=== PATIENT | female | born 1990 | race Caucasian/White ===

== ENCOUNTER 2018-11-21 20:19 | Emergency (ER) | payer SELFPAY ==
[2018-11-21 20:26] VITALS: BP 110/67; PULSE 97; RESP 16; TEMP 36.6; O2SAT 100
[2018-11-21] MEDS: Acetaminophen 500 MG TAB 1000 MG PO (20:44)
--- NOTE | 2018-11-21 20:59 | W.ED.GENAD ---
Discharge Plan Disposition Patient Disposition: HOME Condition: Improving Discharge Details Chief Complaint: Headache Clinical Impression: Acute anterior epistaxis Primary Care Provider: None,None ED Provider: Israel Wood Discharge Instructions Instructions: Nosebleed (ED) Additional Instructions: Please refrain from any stimulation or trauma to your nose as this may cause nosebleeding to recur. You may use small amounts of bacitracin on a Q-tip just inside your nose to keep them moist. For any further headache she may continue to use Tylenol but I would suggest refraining from NSAIDs including ibuprofen or aspirin. If symptoms become persistent please follow-up with primary care provider or ENT for reassessment. Feel free to return the emergency department for any new or worsening symptoms. Referrals: Primary Care Provider [Outside] (as needed) Discharge Data Discharge Date/Time-TO BE ENTERED AT DEPARTURE: 11/21/18 21:38 Medical Decision Making Patient presenting the emergency department for chief complaint of epistaxis. Patient reports 3 times this week she has had epistaxis followed by a mild headache afterwards. Patient denies any focal neurological deficits does state some history of headache and that this is not the most severe headache she has ever had but was concerned about them being related. Patient denies any specific injury or trauma that started the event. Physical exam does show an anterior source of epistaxis with dried blood present and no current bleeding. Given that patient has had 3 occurrences this week with no known cause I do feel that CBC is warranted at feel that this is more likely due to minor acute trauma. Plan to observe patient and give acetaminophen for headache. Neurological exam is unremarkable. No acute signs of anemia, within normal limits platelets, and otherwise nondiagnostic. Patient reassessed and states improvement of headache and no further epistaxis. Patient was given a nasal clip and informed on appropriate care and return precautions were thoroughly discussed. Patient to follow-up with primary care provider for reassessment or if this continues to become a recurrent issue. After discussion of diagnosis and plan of care patient has no further needs, questions, or concerns and states clear understanding to return to the emergency department for any worsening symptoms. HPI General Mode of arrival: ambulatory. Date/Time Provider Initiated Documentation: 11/21/18 20:20. Limitations to Documentation: no limitations. Information obtained by: patient and RN notes reviewed. History of Present Illness 27 year old F presents to the emergency department with the chief complaint of Epistaxis, headache, described as mild and similar to prior episodes, with intensity rated at 5. and is localized to the head. Patient started experiencing this week(s) (1) and it has been intermittent. No relieving factors improve symptom(s), Patient did receive the following treatments prior to arrival, none Related Data Allergies Allergy/AdvReac Type Severity Reaction Status Date / Time nut - unspecified Allergy Mild Skin Rash Unverified 11/21/18 20:30 General Stated Complaint: Headache JULISSA: 4 Review of Systems Constitutional Denies chills, Denies fever(s) and Reports headache(s) Eyes Denies change in vision and Denies photophobia ENT Reports as per HPI, Denies dizziness, Reports headache(s), Reports epistaxis, Denies nasal obstruction, Denies nasal trauma and Denies post nasal drip Cardiovascular Denies chest pain and Denies syncope Gastrointestinal Denies nausea and Denies vomiting Neurologic Reports as per HPI, Denies dizziness, Denies syncope, Reports headache(s) and Denies sensory deficit [facility] Medical History Polycystic ovarian disease (Acute) Social History Smoking/Tobacco Use Status: Never Drug use: Never Do you feel safe at home: Yes Do you feel safe in your relationship?: Yes Exam Const General: cooperative, healthy appearing, no acute distress and well groomed Orientation: alert, awake and oriented x3 HENMT Head: normal to inspection and atraumatic Ears: hearing grossly normal bilaterally and TM's normal bilaterally General nose exam: external nose normal, no nasal discharge and epistaxis on the right anterior source and dried blood present Mouth: oral mucosae normal and moist mucous membranes Throat: posterior oropharynx normal, tonsils normal and uvula midline Eyes Visual Gay: normal visual gay by confrontation Alignment and Position: alignment normal Periorbital: periorbital findings normal Eyelids: eyelids normal Pupils: PERRL EOM: EOM intact bilaterally and No nystagmus Neck Neck: normal visual inspection, full ROM, no lymphadenopathy and no meningeal signs Resp Effort & Inspection: normal respiratory effort and able to speak in complete sentences Auscultation: clear to auscultation bilaterally Cardio Rate: regular rate Rhythm: regular rhythm Heart Sounds: S1 normal and S2 normal Neuro General: alert, awake, oriented x3, gait normal, tone normal, moves all extremities, normal light touch, pain and propioception, no meningeal signs, CN's II-XI intact bilaterally and not confused Cranial Nerves: no nystagmus Cognition: normal cognition Speech: speech normal Motor: muscle tone normal throughout and strength 5/5 throughout Course Vital Signs Temperature 36.6 C 11/21/18 20:26 Pulse 97 H 11/21/18 20:26 Respiratory Rate 16 11/21/18 20:26 Blood Pressure 110/67 11/21/18 20:26 Pulse Oximetry 100 11/21/18 20:26 Temperature 36.6 C 11/21/18 20:26 Temperature Source Skin 11/21/18 20:26 Pulse 97 H 11/21/18 20:26 Respiratory Rate 16 11/21/18 20:26 Respiratory Effort Non-Labored 11/21/18 20:28 Blood Pressure 110/67 11/21/18 20:26 Pulse Oximetry 100 11/21/18 20:26 Oxygen Delivery Method Room Air 11/21/18 20:26 Oxygen Flow Rate 0 11/21/18 20:26 Pain Level 5 11/21/18 20:44
--- NOTE | 2018-11-21 21:04 | ED.GENADUL_ITS ---
Discharge Plan Disposition Patient Disposition: HOME Condition: Improving Discharge Details Chief Complaint: Headache Clinical Impression: Acute anterior epistaxis Primary Care Provider: None,None ED Provider: Israel Wood Discharge Instructions Instructions: Nosebleed (ED) Additional Instructions: Please refrain from any stimulation or trauma to your nose as this may cause nosebleeding to recur. You may use small amounts of bacitracin on a Q-tip just inside your nose to keep them moist. For any further headache she may continue to use Tylenol but I would suggest refraining from NSAIDs including ibuprofen or aspirin. If symptoms become persistent please follow-up with primary care provider or ENT for reassessment. Feel free to return the emergency department for any new or worsening symptoms. Referrals: Primary Care Provider [Outside] (as needed) Discharge Data Discharge Date/Time-TO BE ENTERED AT DEPARTURE: 11/21/18 21:38 Medical Decision Making Patient presenting the emergency department for chief complaint of epistaxis. Patient reports 3 times this week she has had epistaxis followed by a mild headache afterwards. Patient denies any focal neurological deficits does state some history of headache and that this is not the most severe headache she has ever had but was concerned about them being related. Patient denies any specific injury or trauma that started the event. Physical exam does show an anterior source of epistaxis with dried blood present and no current bleeding. Given that patient has had 3 occurrences this week with no known cause I do feel that CBC is warranted at feel that this is more likely due to minor acute trauma. Plan to observe patient and give acetaminophen for headache. Neurological exam is unremarkable. No acute signs of anemia, within normal limits platelets, and otherwise nondiagnostic. Patient reassessed and states improvement of headache and no further epistaxis. Patient was given a nasal clip and informed on appropriate care and return precautions were thoroughly discussed. Patient to follow-up with primary care provider for reassessment or if this continues to become a recurrent issue. After discussion of diagnosis and plan of care patient has no further needs, questions, or concerns and states clear understanding to return to the emergency department for any worsening symptoms. HPI General Mode of arrival: ambulatory . Date/Time Provider Initiated Documentation: 11/21/18 20:20 . Limitations to Documentation: no limitations . Information obtained by: patient and RN notes reviewed . History of Present Illness 27 year old F presents to the emergency department with the chief complaint of Epistaxis, headache, described as mild and similar to prior episodes, with intensity rated at 5. and is localized to the head. Patient started experiencing this week(s) (1) and it has been intermittent. No relieving factors improve symptom(s), Patient did receive the following treatments prior to arrival, none Related Data Allergies Allergy/AdvReac Type Severity Reaction Status Date / Time nut - unspecified Allergy Mild Skin Rash Unverified 11/21/18 20:30 General Stated Complaint: Headache JULISSA: 4 Review of Systems Constitutional Denies chills, Denies fever(s) and Reports headache(s) Eyes Denies change in vision and Denies photophobia ENT Reports as per HPI, Denies dizziness, Reports headache(s), Reports epistaxis, Denies nasal obstruction, Denies nasal trauma and Denies post nasal drip Cardiovascular Denies chest pain and Denies syncope Gastrointestinal Denies nausea and Denies vomiting Neurologic Reports as per HPI, Denies dizziness, Denies syncope, Reports headache(s) and Denies sensory deficit [facility] Medical History Polycystic ovarian disease (Acute) Social History Smoking/Tobacco Use Status: Never Drug use: Never Do you feel safe at home: Yes Do you feel safe in your relationship?: Yes Exam Const General: cooperative, healthy appearing, no acute distress and well groomed Orientation: alert, awake and oriented x3 HENMT Head: normal to inspection and atraumatic Ears: hearing grossly normal bilaterally and TM's normal bilaterally General nose exam: external nose normal, no nasal discharge and epistaxis on the right anterior source and dried blood present Mouth: oral mucosae normal and moist mucous membranes Throat: posterior oropharynx normal, tonsils normal and uvula midline Eyes Visual Gay: normal visual gay by confrontation Alignment and Position: alignment normal Periorbital: periorbital findings normal Eyelids: eyelids normal Pupils: PERRL EOM: EOM intact bilaterally and No nystagmus Neck Neck: normal visual inspection, full ROM, no lymphadenopathy and no meningeal signs Resp Effort & Inspection: normal respiratory effort and able to speak in complete sentences Auscultation: clear to auscultation bilaterally Cardio Rate: regular rate Rhythm: regular rhythm Heart Sounds: S1 normal and S2 normal Neuro General: alert, awake, oriented x3, gait normal, tone normal, moves all extremities, normal light touch, pain and propioception, no meningeal signs, CN's II-XI intact bilaterally and not confused Cranial Nerves: no nystagmus Cognition: normal cognition Speech: speech normal Motor: muscle tone normal throughout and strength 5/5 throughout Course Vital Signs Temperature 36.6 C 11/21/18 20:26 Pulse 97 H 11/21/18 20:26 Respiratory Rate 16 11/21/18 20:26 Blood Pressure 110/67 11/21/18 20:26 Pulse Oximetry 100 11/21/18 20:26 Temperature 36.6 C 11/21/18 20:26 Temperature Source Skin 11/21/18 20:26 Pulse 97 H 11/21/18 20:26 Respiratory Rate 16 11/21/18 20:26 Respiratory Effort Non-Labored 11/21/18 20:28 Blood Pressure 110/67 11/21/18 20:26 Pulse Oximetry 100 11/21/18 20:26 Oxygen Delivery Method Room Air 11/21/18 20:26 Oxygen Flow Rate 0 11/21/18 20:26 Pain Level 5 11/21/18 20:44
[2018-11-21 21:06] LABS: Abs Immature Grans 0.06 k/cumm (0.0-0.09); Absolute Basophil Count 0.03 k/cumm (0.0-0.2); Absolute Lymphocyte Count 2.27 k/cumm (1.2-3.4); Absolute Monocyte Count 1.03 k/cumm (0.11-0.7); Basophils % 0.2; Eosinophils % 0.8; HCT 43.1 % (36.0-46.0); Immature Grans % 0.5; Lymphocytes % 18.1; Mean Corp. HGB Concentration 32.5 g/dL (32.0-36.0); Mean Corpuscular Hemoglobin 26.5 pg (27.0-33.0); Mean Corpuscular Volume 81.5 fL (80-95); Mean Platelet Volume 9.8 fL (8.0-11.0); Monocytes % 8.2; Neutrophils % 72.2; Platelet Count 325 x1000/uL (130-400); RBC 5.29 m/cumm (4.00-5.20); RBC Distribution Width 13.1 % (11.7-14.6); White Blood Cell Count 12.52 k/cumm (4.4-10.8)
[2018-11-21 21:09] LABS: Absolute Neutrophil Count 9.04 k/cumm (1.2-6.7)
== END 2018-11-21 21:38 | disposition home or self-care (01) ==
PROVIDERS: Emergency Provider Nurse Practitioner Family
DX: R04.0 Epistaxis (principal); R51 Headache
CPT/HCPCS: 36415; 81025; 99283; 85025

== ENCOUNTER 2018-11-23 09:09 | Emergency (ER) | payer SELFPAY ==
[2018-11-23 09:16] VITALS: BP 152/112; PULSE 74; RESP 16; TEMP 36.5; O2SAT 100
[2018-11-23] MEDS: Oxymetazolone 0.05% SPRAY 15 ML BTL NS (09:26)
--- NOTE | 2018-11-23 09:28 | W.ED.GENAD ---
Discharge Plan Disposition Patient Disposition: HOME Discharge Details Chief Complaint: Epistaxis Clinical Impression: Epistaxis Primary Care Provider: MARISA TRONCOSO ED Provider: Billy Smith Home Meds and New Rx's Prescriptions: New oxymetazoline [Afrin (oxymetazoline)] 0.05 % spray,non-aerosol 2 spray TRACY Q12H 3 Days RF: 0 No Action acetaminophen [Tylenol] 325 mg Tablet PO PRNRF: 0 Discharge Instructions Instructions: Nosebleed (ED) Additional Instructions: No blowing your nose today or tomorrow. Please follow-up with tear down man. Please contact your primary care physician to arrange follow-up. Return to the ER for any worsening or new concerning symptoms. Please contact me connections regarding establishing insurance. Referrals: Erick Cisneros DO [OSTEOPATHIC DOCTOR] - Bo Akbar MD [ [facility] STAFF PHYSICIAN] - MARISA TRONCOSO [Primary Care Provider] - Medical Decision Making 27-year-old female here with epistaxis right nare that is recurrent this week, improved with nasal clamp. No associated dizziness or fatigue. Patient clear her right nostril but blowing her nose. Afrin was applied intranasally. Nasal clamp was reapplied. Nasal clamp was then removed 20 minutes later and she noted to have complete resolution of epistaxis. I was not able to identify source of bleeding on examination. Patient was observed in the emergency department for 2 hours and had no recurrent bleeding. Patient was instructed to follow-up with primary care physician. She is also instructed to follow-up with ear nose and throat given recurrent bleed. Usual customary discharge instructions were provided. I encouraged her to return to the ER for any worsening or new concerning symptoms. HPI General Mode of arrival: ambulatory. Date/Time Provider Initiated Documentation: 11/23/18 09:17. Limitations to Documentation: no limitations. Information obtained by: patient. HPI Narrative: 27-year-old female presents with nosebleed. Patient notes that she was here last week with nosebleed. Symptoms resolved with compression and then recurred last night. Bleeding has been from right nostril only. Bleeding was severe last night. Bleeding improved with nasal clamp. No associated fatigue. Patient does not bleed or bruise easily. No blood thinners or aspirin use. Related Data Home Medications Medication Instructions Recorded Confirmed acetaminophen [Tylenol] PO PRN 11/23/18 oxymetazoline [Afrin 2 spray TRACY Q12H 3 Days ml 11/23/18 (oxymetazoline)] Previous Rx's Medication Instructions Recorded oxymetazoline [Afrin 2 spray TRACY Q12H 3 Days ml 11/23/18 (oxymetazoline)] Allergies Allergy/AdvReac Type Severity Reaction Status Date / Time nut - unspecified Allergy Mild Skin Rash Unverified 11/23/18 09:31 General Stated Complaint: Epistaxis JULISSA: 3 Review of Systems Constitutional Denies fever(s) ENT Reports as per [facility] Medical History Polycystic ovarian disease (Acute) Social History Smoking/Tobacco Use Status: Never Drug use: Never Do you feel safe at home: Yes Do you feel safe in your relationship?: Yes Exam Const General: cooperative and healthy appearing Orientation: alert and awake [facility] General nose exam: epistaxis on the right (dried blood) and septum abnormal (mild swelling) no septal hematoma Face and sinus: normal facial exam Mouth: moist mucous membranes Teeth and gingiva: dentition normal Throat: posterior oropharynx normal Neck Neck: no lymphadenopathy Skin General skin exam: no rashes or lesions noted Neuro General: alert and awake Gait: normal gait Course Vital Signs Temperature 36.5 C 11/23/18 09:16 Pulse 74 11/23/18 09:16 Respiratory Rate 16 11/23/18 09:16 Blood Pressure 152/112 H 11/23/18 09:16 Pulse Oximetry 100 11/23/18 09:16 Temperature 36.5 C 11/23/18 09:16 Temperature Source Skin 11/23/18 09:16 Pulse 74 11/23/18 09:16 Respiratory Rate 16 11/23/18 09:16 Respiratory Effort Non-Labored 11/23/18 09:16 Blood Pressure 152/112 H 11/23/18 09:16 Blood Pressure Position Sitting 11/23/18 09:16 Pulse Oximetry 100 11/23/18 09:16 Oxygen Delivery Method Room Air 11/23/18 09:16 Oxygen Flow Rate 0 11/23/18 09:16 Pain Level 0 11/23/18 09:16
[2018-11-23 11:01] VITALS: BP 133/96; PULSE 77; RESP 16; O2SAT 99
[2018-11-23 11:05] VITALS: BP 122/60
--- NOTE | 2018-11-23 11:17 | ED.GENADUL_ITS ---
Discharge Plan Disposition Patient Disposition: HOME Discharge Details Chief Complaint: Epistaxis Clinical Impression: Epistaxis Primary Care Provider: MARISA TRONCOSO ED Provider: Billy Smith Home Meds and New Rx's Prescriptions: New oxymetazoline [Afrin (oxymetazoline)] 0.05 % spray,non-aerosol 2 spray TRACY Q12H 3 Days RF: 0 No Action acetaminophen [Tylenol] 325 mg Tablet PO PRNRF: 0 Discharge Instructions Instructions: Nosebleed (ED) Additional Instructions: No blowing your nose today or tomorrow. Please follow-up with director learning and development. Please contact your primary care physician to arrange follow-up. Return to the ER for any worsening or new concerning symptoms. Please contact me connections regarding establishing insurance. Referrals: Erick Cisneros DO [OSTEOPATHIC DOCTOR] - Bo Akbar MD [ [facility] STAFF PHYSICIAN] - MARISA TRONCOSO [Primary Care Provider] - Medical Decision Making 27-year-old female here with epistaxis right nare that is recurrent this week, improved with nasal clamp. No associated dizziness or fatigue. Patient clear her right nostril but blowing her nose. Afrin was applied intranasally. Nasal clamp was reapplied. Nasal clamp was then removed 20 minutes later and she noted to have complete resolution of epistaxis. I was not able to identify source of bleeding on examination. Patient was observed in the emergency department for 2 hours and had no recurrent bleeding. Patient was instructed to follow-up with primary care physician. She is also instructed to follow-up with ear nose and throat given recurrent bleed. Usual customary discharge instructions were provided. I encouraged her to return to the ER for any worsening or new concerning symptoms. HPI General Mode of arrival: ambulatory . Date/Time Provider Initiated Documentation: 11/23/18 09:17 . Limitations to Documentation: no limitations . Information obtained by: patient . HPI Narrative: 27-year-old female presents with nosebleed. Patient notes that she was here last week with nosebleed. Symp toms resolved with compression and then recurred last night. Bleeding has been from right nostril only. Bleeding was severe last night. Bleeding improved with nasal clamp. No associated fatigue. Patient does not bleed or bruise easily. No blood thinners or aspirin use. Related Data Home Medications Medication Instructions Recorded Confirmed acetaminophen [Tylenol] PO PRN 11/23/18 oxymetazoline [Afrin 2 spray TRACY Q12H 3 Days ml 11/23/18 (oxymetazoline)] Previous Rx's Medication Instructions Recorded oxymetazoline [Afrin 2 spray TRACY Q12H 3 Days ml 11/23/18 (oxymetazoline)] Allergies Allergy/AdvReac Type Severity Reaction Status Date / Time nut - unspecified Allergy Mild Skin Rash Unverified 11/23/18 09:31 General Stated Complaint: Epistaxis JULISSA: 3 Review of Systems Constitutional Denies fever(s) ENT Reports as per [facility] Medical History Polycystic ovarian disease (Acute) Social History Smoking/Tobacco Use Status: Never Drug use: Never Do you feel safe at home: Yes Do you feel safe in your relationship?: Yes Exam Const General: cooperative and healthy appearing Orientation: alert and awake [facility] General nose exam: epistaxis on the right (dried blood) and septum abnormal (mild swelling) no septal hematoma Face and sinus: normal facial exam Mouth: moist mucous membranes Teeth and gingiva: dentition normal Throat: posterior oropharynx normal Neck Neck: no lymphadenopathy Skin General skin exam: no rashes or lesions noted Neuro General: alert and awake Gait: normal gait Course Vital Signs Temperature 36.5 C 11/23/18 09:16 Pulse 74 11/23/18 09:16 Respiratory Rate 16 11/23/18 09:16 Blood Pressure 152/112 H 11/23/18 09:16 Pulse Oximetry 100 11/23/18 09:16 Temperature 36.5 C 11/23/18 09:16 Temperature Source Skin 11/23/18 09:16 Pulse 74 11/23/18 09:16 Respiratory Rate 16 11/23/18 09:16 Respiratory Effort Non-Labored 11/23/18 09:16 Blood Pressure 152/112 H 11/23/18 09:16 Blood Pressure Position Sitting 11/23/18 09:16 Pulse Oximetry 100 11/23/18 09:16 Oxygen Delivery Method Room Air 11/23/18 09:16 Oxygen Flow Rate 0 11/23/18 09:16 Pain Level 0 11/23/18 09:16
--- NOTE | 2018-11-23 18:34 | NUR.NOTE ---
Nursing Note: Referral and physician note faxed to ENT for follow up. Dipti Ventura.
== END 2018-11-23 11:38 | disposition home or self-care (01) ==
PROVIDERS: Emergency Provider Student in an Organized Health Care Education/Training Program; PCP Family Medicine
DX: R04.0 Epistaxis (principal)
CPT/HCPCS: 99283

== ENCOUNTER 2021-04-21 13:37 | Outpatient (REF) | payer SELFPAY ==
[2021-04-21 20:56] LABS: ALT 31 U/L (14-59); AST 13 U/L (15-37); Alkaline Phosphatase 76 U/L (46-116); Anion Gap 10.4 mmol/L (3-11); BUN 12 mg/dL (7-18); Bilirubin, Total 0.3 mg/dL (0.2-1.0); CO2 25.6 mmol/L (21.0-32.0); CREATININE 0.6 mg/dL (0.55-1.02); Calcium 9.3 mg/dL (8.5-10.1); Calculated LDL 74 mg/dL (<100); Chloride 107 mmol/L (98-107); Cholesterol 153 mg/dL (<200); Glucose 91 mg/dL (74-106); HDL Cholesterol 54 mg/dL (40-60); Potassium 4.4 mmol/L (3.5-5.1); Sodium 143 mmol/L (136-145); Total Protein 7.4 g/dL (6.4-8.2); Triglyceride 127 mg/dL (<150)
--- NOTE | 2021-04-23 11:30 | PAPFT_PTH ---
PATIENT: Kezia Chase [facility] U#:[id number] AGE/SX: 30/F ROOM: RE04/21/[address]: Milvia Ramos : 1990 BED: DIS: 04/21/2021 SPEC #: [id number] RECD: 04/24/21 12:52 STATUS: MARLEY REJevon #: [id number] EBONY: 04/23/21 11:[address]: Milvia Ramos DEPT: [facility] Cytology RECD BY: Sherlyn Solo ENTERED: 04/24/21 12:52 SP TYPE: PAPFT LORENEHR DR: Mayur Martin Tissues: 1 - CX/ENDOCX FOR PAP SMEARS Procedures: PAP THIN PREP/[facility] Screening HPV DNA PROBE Comments: [id number]
== END 2021-04-21 13:38 | disposition home or self-care (01) ==
LOC: NCHCN 13:37
PROVIDERS: PCP Family Medicine; Referring Provider Registered Nurse; Visit Provider Registered Nurse
DX: Z13.220 Encounter for screening for lipoid disorders (principal); E11.9 Type 2 diabetes mellitus without complications; E66.9 Obesity, unspecified; Z12.4 Encounter for screening for malignant neoplasm of cervix; Z11.51 Encounter for screening for human papillomavirus (HPV)
CPT/HCPCS: 80053; 80061; 88142; 87624

== ENCOUNTER 2021-11-01 11:00 | Emergency (ER) | payer BC, SELFPAY ==
[2021-11-01 11:08] VITALS: BP 125/60; PULSE 124; RESP 16; TEMP 37.1; O2SAT 97
--- NOTE | 2021-11-01 11:45 | ED.GENADUL_ITS ---
Discharge Plan Disposition Patient Disposition: HOME Condition: Stable Discharge Details Clinical Impression: Acute streptococcal pharyngitis Primary Care Provider: Mayur Martin ED Provider: Sherlyn Walker Home Meds and New Rx's Prescriptions: New penicillin V potassium 500 mg tablet 500 mg PO BID Qty: 20 0RF Continued acetaminophen [Tylenol] 325 mg Tablet 650 mg PO TID PRN PRN0RF norgestimate-ethinyl estradiol [Previfem] 0.25-35 mg-mcg tablet 1 tab PO DAILY 0RF Label Comments: Take 1 tablet by mouth once a day metformin 1,000 mg tablet 1,000 mg PO BID 0RF Label Comments: Take 1 tablet by mouth twice a day Discharge Instructions Instructions: Pharyngitis (ED) Additional Instructions: Take antibiotic as prescribed Yogurt daily while on antibiotic Take ibuprofen and Tylenol for fever control You received a dose of Decadron Follow-up with your pain and last approximately 72 hours Should you have persistent symptoms in 3 days or not improving, my recommendation is to be checked for monitoring additionally Please return with difficulty swallowing hydrating yourself, or should you have new or worsening complaints Popsicles are a good way to hydrate yourself and help with pain Stand Alone Forms: Work Release Referrals: Mayur Martin [Primary Care Provider] - Discharge Data Discharge Date/Time-TO BE ENTERED AT DEPARTURE: 11/01/21 12:00 Medical Decision Making Patient Appears Well, No Meningismus Strep positive Covid pending Did consider mononucleosis, patient is on 24 hours of symptoms and likely true early to check for mononucleosis We will treat with antibiotics for suspected strep pharyngitis Given single dose of steroids for comfort Return precautions discussed and patient understanding, able to tolerate p.o. without difficulty Return precautions discussed and patient expressed understanding Medical Records Medical records reviewed: Yes I reviewed the patient's medical records. Lab Data Lab results reviewed: Yes I reviewed the patient's lab results. HPI General Date/Time Provider Initiated Documentation: 11/01/21 11:45 . HPI Narrative: This 30-year-old female presents with reports of sore throat and fever, temp of 103 this morning. States symptoms came on abruptly. Denies any cough, chest pain, shortness of breath, dizziness. She has been able to drink without difficulty. 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 Denies any rashes or lesions. Otherwise reportedly healthy. Denies chance of . Denies any globus sensation. Related Data Home Medications Medication Instructions Recorded Confirmed acetaminophen 325 mg tablet 650 mg PO TID PRN PRN 11/23/18 (Tylenol) metformin 1,000 mg tablet 1,000 mg PO BID 11/01/21 11/01/21 norgestimate 0.25 mg-ethinyl 1 tab PO DAILY 11/01/21 11/01/21 estradiol 35 mcg tablet (Previfem) penicillin V potassium 500 mg 500 mg PO BID #20 tab 11/01/21 tablet Previous Rx's Medication Instructions Recorded penicillin V potassium 500 mg 500 mg PO BID #20 tab 11/01/21 tablet Allergies Allergy/AdvReac Type Severity Reaction Status Date / Time nut - unspecified Allergy Mild Skin Rash Unverified 11/01/21 11:17 General Stated Complaint: Fever JULISSA: 4 Review of Systems All systems reviewed & are unremarkable except as noted in HPI and below PFSH All Active Problems (Updated 11/01/21 @ 11:51 by ANDERSON Nelson) Acute streptococcal pharyngitis (Acute) Medical History (Updated 11/01/21 @ 11:51 by ANDERSON Nelson) Polycystic ovarian disease Social History Smoking/Tobacco Use Status: Never Smoking risk assessment performed?: Yes Drug use: Never Substance use type: does not use Do you feel safe at home: Yes Do you feel safe in your relationship?: Yes Exam Const General: cooperative, comfortable and no acute distress HENMT Other: Uvula midline, oropharyngeal erythema Tonsillar exudate and erythema Submandibular, no occipital lymphadenopathy no trismus, no abscess visible Eyes Sclera: sclerae normal Neck Other: no stridor Resp Effort & Inspection: normal respiratory effort Auscultation: clear to auscultation bilaterally Cardio Rate: regular rate Skin General skin exam: no rashes or lesions noted Neuro General: patient alert and patient oriented x3 Course Vital Signs Vital signs: Vital Signs Temperature 37.1 C 11/01/21 11:08 Pulse 124 H 11/01/21 11:08 Respiratory Rate 16 11/01/21 11:08 Blood Pressure 125/60 11/01/21 11:08 Pulse Oximetry 97 11/01/21 11:08 Temperature 37.1 C 11/01/21 11:08 Temperature Source Temporal Artery Scan 11/01/21 11:08 Pulse 124 H 11/01/21 11:08 Respiratory Rate 16 11/01/21 11:08 Respiratory Effort Non-Labored 11/01/21 11:14 Blood Pressure 125/60 11/01/21 11:08 Blood Pressure Position Supine 11/01/21 11:08 Pulse Oximetry 97 11/01/21 11:08 Oxygen Delivery Method Room Air 11/01/21 11:08 Oxygen Flow Rate 0 11/01/21 11:08 Pain Level 0 11/01/21 11:08 Lab/Test Results Lab/Test Results: POC- Test(urine) Negative POC Strep Test-MONY(Rapid) Start: 11/01/21 11:22 Freq: .Rapid Strep Test Status: Active Protocol: Document 11/01/21 11:25 SARA (Rec: 11/01/21 11:25 SARA [id number]) Strep test-MONY(Rapid)-POC POC-Strep test-MONY (Rapid) Positive POC-Strep test-MONY (Rapid) Positive PAWSS Have you Been Recently Intoxicated or Drunk Within the Last 30 days?: No Have you Ever Experienced Previous Episodes of Alcohol Withdrawal?: No Have you ever Experienced Withdrawal Seizures?: No Have you ever Experienced Delirium Tremens(DT)s?: No Have you ever undergone Alcohol Rehabilitation Treatment (i.e, inpt ot outpatient treatment programs)?: No Have you ever Experienced Blackouts?: No Have you ever Combined Alcohol with other Downers within the last 90 days?: No Have you ever Combined Alcohol with any other Substance of Abuse during the last 90 days?: No Result: 0
[2021-11-01 12:00] VITALS: BP 126/70; PULSE 98; RESP 16; TEMP 36.4; O2SAT 98
[2021-11-01] MEDS: Dexamethasone 4 MG TAB PO (12:00)
[2021-11-03 12:09] LABS: COVID-19 RT-PCR UVMMC Result Negative (Negative)
== END 2021-11-01 12:00 | disposition home or self-care (01) ==
PROVIDERS: Emergency Provider Physician Assistant; PCP Family Medicine
DX: J02.0 Streptococcal pharyngitis (principal)
CPT/HCPCS: 81025; 87880; 99283; U0003; J8540

== ENCOUNTER 2022-11-17 08:10 | Emergency (ER) | payer SELFPAY ==
[2022-11-17] VITALS (132 sets, daily range): BP systolic 75–129; BP diastolic 54–116; PULSE 82–101; RESP 10–35; O2SAT 95–100
--- NOTE | 2022-11-17 08:15 | RT.EKG_ITS ---
APPROVED REPORT Exam: Resting ECG Reason for Exam: chest discomfort Patient Location: E HR:94 bpm ECG Measurements Heart Rate 94 AXIS AL 158 P 42 QRSd 89 QRS 45 QT 347 T 30 QTc 434 Conclusion Sinus rhythm...normal P axis, V-rate 60- 99 Inferior infarct, old...Q >35mS, II III aVF
[2022-11-17 08:50] LABS: Abs Immature Grans 0.05 10^3/uL (0.0-0.06); Absolute Basophil Count 0.03 10^3/uL (0.0-0.2); Absolute Eosinophil Count 0.01 10^3/uL (0.0-0.7); Absolute Lymphocyte Count 1.02 10^3/uL (1.2-3.4); Absolute Monocyte Count 0.89 10^3/uL (0.1-0.8); Absolute Neutrophil Count 7.32 10^3/uL (1.2-6.7); Basophils % 0.3; Eosinophils % 0.1; HCT 40.7 % (36.0-46.0); HGB 13.5 g/dL (11.2-15.7); Immature Grans % 0.5; Lymphocytes % 10.9; MCH 27.1 pg (27.0-33.0); MCHC 33.2 % (32.0-36.0); MCV 82 fL (80-95); MPV 9.2 fL (8.0-11.0); Monocytes % 9.5; Neutrophils % 78.7; Platelet Count 218 10^3/uL (130-400); RBC 4.99 10^6/uL (3.93-5.22); RDW 12.5 % (11.7-14.6); WBC 9.32 10^3/uL (4.4-10.8)
[2022-11-17] MEDS: Normal Saline 1,000 ML 1000 ML IV (08:50)
[2022-11-17] MEDS: Ketorolac 15 MG/ML VIAL IVP (08:50)
--- NOTE | 2022-11-17 08:54 | ED.GENADUL_ITS ---
Discharge Plan Disposition Patient Disposition: Transfer-Acute Inpatient Care Specific Acute Inpt Facility: [facility] Condition: Fair Discharge Details Clinical Impression: Myocarditis Primary Care Provider: Mayur Martin ED Provider: Israel Wood Home Meds and New Rx's Prescriptions: No Action acetaminophen [Tylenol] 325 mg Tablet 650 mg PO TID PRN PRN norgestimate-ethinyl estradiol [Previfem] 0.25-35 mg-mcg tablet 1 tab PO DAILY Patient Comments: Take 1 tablet by mouth once a day metformin 1,000 mg tablet 1,000 mg PO BID Patient Comments: Take 1 tablet by mouth twice a day penicillin V potassium 500 mg tablet 500 mg PO BID Qty: 20 0RF Patient Comments: not taking Discharge Data Discharge Date/Time-TO BE ENTERED AT DEPARTURE: 11/17/22 17:48 Medical Decision Making Patient presenting to the emergency department for chief complaint of chest tightness discomfort and facial swelling. She states that this started yesterday evening. Patient does state that she used a new suntan lotion yesterday while she was in the sun but did not apply any to her face. Patient also reports that she is on hormonal control medication. Patient denies any injury or trauma, known bug bites, new medications or foods, denies difficulty breathing swallowing or sore throat. 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 She does state last night she did feel like she had a headache and some chills and took acetaminophen which did provide some relief. Physical exam shows an unremarkable HEENT except for facial erythema with slightly more noted on the right side of the face with some swelling. Cardiac respiratory and other exam is unremarkable. I suspect facial complaint is more than likely a facial sunburn with slight edema secondary to the sunburn. Given the diffuse pattern of erythematous attribution I doubt facial cellulitis or significant infection. Differentials to include potential reaction to make-ups soaps or lotion, photodermatitis, sunburn, insect bite. As far as chest complaint feel this may be a component of anxiety but given that patient was slightly tachycardic while here we will perform EKG labs including D-dimer to rule out any emergent life-threatening cardiopulmonary condition. Please see physician interpretation for full interpretation of EKG but upon my review patient is in sinus rhythm with no concerning findings to suggest acute STEMI or life-threatening rhythm abnormality. Labs were reviewed and CBC does show elevated neutrophils, low lymphocytes, and high monocytes but otherwise all other findings within normal range, CMP shows slightly elevated glucose at 138 but otherwise unremarkable. Initial troponin was reported at 91 and D-dimer at 1623. Patient is not and urinalysis shows trace intact blood but otherwise nondiagnostic. We will trend the troponin as I have lower suspicion that this is a primary cardiac source and have a higher suspicion of possible PE. Will perform CTA imaging and continue to monitor. CT imaging showed no pulmonary embolism. We will continue with delta troponin. Patient did report that after ketorolac chest pain improved significantly. We will also repeat EKG at time of troponin. Please see physician interpretation for interpretation of second EKG but upon my review does not show significant interval change with patient showing sinus rhythm, rate of 83 and otherwise nondiagnostic. Second troponin is slightly decreased at 83. Patient reassessed and did state still mild chest discomfort but again improved from initial presentation. Given troponin still elevated without obvious source we will consult with cardiology. And potentially considering a myocarditis given her cold-like symptoms that also started yesterday but without EKG changes this diagnosis is not fully clear. Pending speaking to [facility] patient did talk to father who states that when he was younger he did have a spontaneous pericardial effusion that needed no intervention and per his memory resolved on its own. Patient reports no change in condition and only has mild discomfort at this time. Spoke with Dr. Jocy Cronin with cardiology at [facility]. After discussion of patient's case and current working diagnosis of myocarditis we will transfer patient down to their facility to have stress and echo testing done. Accepting physician is attending Dr. Son with cardiology. Patient was agreeable to transfer. Pending transfer 3-hour troponin was drawn and is slightly elevated confirming need to go to tertiary care facility. Patient signed out to Sherlyn BARRON pending transport availability along with bed availability at tertiary care center. Imaging Data Radiologic Study: Imaging: CT Scan Radiologist's impression: Exam(s) PROCEDURE INFORMATION: Exam: CTA Chest With Contrast Exam date and time: 11/17/2022 10:13 AM Age: 31 years old Clinical indication: Other: Chest pain elevated ddimmer TECHNIQUE: Imaging protocol: Computed tomographic angiography of the chest with contrast. 3D rendering (Not supervised by radiologist): MIP and/or 3D reconstructed images were created by the technologist. Contrast material: OMNIPAQUE 350; Contrast volume: 100 ml; Contrast route: INTRAVENOUS (IV); COMPARISON: No relevant prior studies available. FINDINGS: Pulmonary arteries: Negative for acute pulmonary embolism. Aorta: Unremarkable. No aortic aneurysm. No aortic dissection. Lungs: Unremarkable. No consolidation. No masses. Pleural spaces: Unremarkable. No pneumothorax. No pleural effusion. Heart: Unremarkable. No cardiomegaly. No pericardial effusion. Lymph nodes: Unremarkable. No enlarged lymph nodes. Bones/joints: Unremarkable. No acute fracture. Soft tissues: Unremarkable. IMPRESSION: Negative for acute pulmonary embolism. Lab Data Lab results reviewed: Yes I reviewed the patient's lab results. HPI General Mode of arrival: ambulatory . Date/Time Provider Initiated Documentation: 11/17/22 08:10 . Limitations to Documentation: no limitations . Information obtained by: patient and RN notes reviewed . History of Present Illness 31 year old F presents to the emergency department with the chief complaint of Chest pressure and facial swelling with jaw pain, described as moderate, with intensity rated at 6. Quality is described as aching, and is localized to the chest. Patient reports no radiation. Patient started experiencing this day(s) (1) and it has been constant. No relieving factors improve symptom(s), No exacerbating factors reported . Patient notes fever/chills. Patient did receive the following treatments prior to arrival, none Related Data Home Medications Medication Instructions Recorded Confirmed acetaminophen 325 mg tablet 650 mg PO TID PRN PRN 11/23/18 11/17/22 (Tylenol) metformin 1,000 mg tablet 1,000 mg PO BID 11/01/21 11/17/22 norgestimate 0.25 mg-ethinyl 1 tab PO DAILY 11/01/21 11/17/22 estradiol 35 mcg tablet (Previfem) penicillin V potassium 500 mg 500 mg PO BID #20 tabs 11/01/21 tablet Previous Rx's Medication Instructions Recorded penicillin V potassium 500 mg 500 mg PO BID #20 tabs 11/01/21 tablet Allergies Allergy/AdvReac Type Severity Reaction Status Date / Time nut - unspecified Allergy Mild Skin Rash Unverified 11/17/22 08:50 General Stated Complaint: Chest Pain JULISSA: 3 Review of Systems Constitutional Constitutional: Reports chills, Reports fever(s) (Subjective last night) and Reports headache(s) ENT Ears, Nose, Mouth, and Throat: Reports as per HPI, Reports otalgia, Reports headache(s), Denies neck pain, Denies sore throat and Reports other (Jaw pain) Cardiovascular Cardiovascular: Reports as per HPI, Reports chest pain, Denies pedal edema, Denies leg edema, Denies lightheadedness, Reports dyspnea and Denies dyspnea on exertion Respiratory Respiratory: Denies cough, Reports dyspnea and Denies dyspnea on exertion Gastrointestinal Gastrointestinal: Denies abdominal pain Musculoskeletal Musculoskeletal: Denies neck pain Integumentary/Breasts Skin/Breast: Reports erythema and Reports skin swelling Neurologic Neurologic: Reports headache(s) PFSH All Active Problems (Updated 11/17/22 @ 15:40 by Israel Wood NP) Myocarditis (Acute) Medical History (Updated 11/17/22 @ 15:40 by Israel Wood NP) Polycystic ovarian disease Social History Smoking/Tobacco Use Status: Never Smoking risk assessment performed?: Yes Drug use: Never Substance use type: does not use Do you feel safe at home: Yes Do you feel safe in your relationship?: Yes Exam Const General: cooperative, healthy appearing, comfortable, no acute distress, not di aphoretic and not ill appearing Nutritional Appearance: average body habitus Orientation: alert, awake and oriented x3 Limitations: mental status not altered HENMT Head: normal to inspection, normocephalic and atraumatic Ears: hearing grossly normal bilaterally and TM's normal bilaterally General nose exam: external nose normal Face and sinus: erythema bilaterally (Diffuse more around cheeks and forehead) Mouth: oral mucosae normal, no drooling, no muffled voice and no trismus Throat: posterior oropharynx normal Neck Neck: normal visual inspection, full ROM, trachea midline, supple and no anterior neck swelling Resp Effort & Inspection: normal respiratory effort and able to speak in complete sentences Auscultation: clear to auscultation bilaterally Cardio Jugular venous pressure: no JVD Palpation: normal PMI Rate: regular rate Rhythm: regular rhythm Heart Sounds: S1 normal, S2 normal, no click, no gallops, no murmurs and no rubs Bruits: no abdominal aortic bruits and no carotid bruits Skin General skin exam: no rashes or lesions noted Neuro General: patient alert, patient awake, patient oriented x3, tone normal and moves all extremities Cognition: normal cognition Speech: speech normal Course Vital Signs Vital signs: Vital Signs Pulse 101 H 11/17/22 08:14 Respiratory Rate 20 11/17/22 08:14 Blood Pressure 126/104 H 11/17/22 08:14 Pulse Oximetry 98 11/17/22 08:14 Pulse 101 H 11/17/22 08:14 Respiratory Rate 20 11/17/22 08:14 Respiratory Effort Normal, Non-Labored 11/17/22 08:43 Blood Pressure 126/104 H 11/17/22 08:14 Blood Pressure Position Supine 11/17/22 08:14 Pulse Oximetry 98 11/17/22 08:14 Oxygen Delivery Method Room Air 11/17/22 08:14 Oxygen Flow Rate 0 11/17/22 08:14 Lab/Test Results Lab/Test Results: Laboratory Tests Range/Units 11/17/22 11/17/22 11/17/22 08:39 08:39 08:39 WBC RBC Hgb Hct MCV MCH MCHC RDW Plt Count MPV Immature Gran % Neutrophils % Band Neutrophils % Lymphocytes % Atypical Lymphs % Monocytes % Eosinophils % Basophils % Metamyelocytes % Myelocytes % Promyelocytes % Other Cells % Nucleated RBC % Absolute Neutrophils Absolute Lymphocytes Absolute Monocytes Absolute Eosinophils Absolute Basophils RBC Morphology Polychromasia Hypochromasia Poikilocytosis Basophilic Stippling Anisocytosis Microcytosis Macrocytosis Spherocytes Tear Drop Cells Ovalocytes Stomatocytes [place] Bodies Moo Cells/Echinocytes Acanthocytes (Spur) Schistocytes VBG pH VBG pCO2 VBG pO2 VBG HCO3 VBG Total CO2 VBG O2 Saturation VBG Base Excess Sodium Cancelled Potassium Cancelled Chloride Cancelled Carbon Dioxide Cancelled Anion Gap Cancelled BUN Cancelled Creatinine Cancelled Est GFR (CKD-EPI 2020) Cancelled Glucose Cancelled Calcium Cancelled Magnesium Cancelled Total Bilirubin Cancelled AST Cancelled ALT Cancelled Alkaline Phosphatase Cancelled Troponin I Cancelled NT-Pro-B Natriuret Pep Cancelled Total Protein Cancelled Albumin Cancelled Procalcitonin Cancelled COVID-19 Source Cancelled SARS-CoV-2 (PCR) Cancelled Influenza Type A (PCR) Cancelled Influenza Type B (PCR) Cancelled RSV (PCR) Cancelled Range/Units 11/17/22 11/17/22 11/17/22 08:39 08:39 08:43 WBC Cancelled 9.32 RBC Cancelled 4.99 Hgb Cancelled 13.5 Hct Cancelled 40.7 MCV Cancelled 82 MCH Cancelled 27.1 MCHC Cancelled 33.2 RDW Cancelled 12.5 Plt Count Cancelled 218 MPV Cancelled 9.2 Immature Gran % Cancelled 0.5 Neutrophils % Cancelled 78.7 Band Neutrophils % Cancelled Lymphocytes % Cancelled 10.9 Atypical Lymphs % Cancelled Monocytes % Cancelled 9.5 Eosinophils % Cancelled 0.1 Basophils % Cancelled 0.3 Metamyelocytes % Cancelled Myelocytes % Cancelled Promyelocytes % Cancelled Other Cells % Cancelled Nucleated RBC % Cancelled 0.0 Absolute Neutrophils Cancelled 7.32 H Absolute Lymphocytes Cancelled 1.02 L Absolute Monocytes Cancelled 0.89 H Absolute Eosinophils Cancelled 0.01 Absolute Basophils Cancelled 0.03 RBC Morphology Cancelled Polychromasia Cancelled Hypochromasia Cancelled Poikilocytosis Cancelled Basophilic Stippling Cancelled Anisocytosis Cancelled Microcytosis Cancelled Macrocytosis Cancelled Spherocytes Cancelled Tear Drop Cells Cancelled Ovalocytes Cancelled Stomatocytes Cancelled [place] Bodies Cancelled Leiter Cells/Echinocytes Cancelled Acanthocytes (Spur) Cancelled Schistocytes Cancelled VBG pH Cancelled VBG pCO2 Cancelled VBG pO2 Cancelled VBG HCO3 Cancelled VBG Total CO2 Cancelled VBG O2 Saturation Cancelled VBG Base Excess Cancelled Sodium Potassium Chloride Carbon Dioxide Anion Gap BUN Creatinine Est GFR (CKD-EPI 2020) Glucose Calcium Magnesium Total Bilirubin AST ALT Alkaline Phosphatase Troponin I NT-Pro-B Natriuret Pep Total Protein Albumin Procalcitonin COVID-19 Source SARS-CoV-2 (PCR) Influenza Type A (PCR) Influenza Type B (PCR) RSV (PCR) Range/Units 11/17/22 11:39 WBC RBC Hgb Hct MCV MCH MCHC RDW Plt Count MPV Immature Gran % Neutrophils % Band Neutrophils % Lymphocytes % Atypical Lymphs % Monocytes % Eosinophils % Basophils % Metamyelocytes % Myelocytes % Promyelocytes % Other Cells % Nucleated RBC % Absolute Neutrophils Absolute Lymphocytes Absolute Monocytes Absolute Eosinophils Absolute Basophils RBC Morphology Polychromasia Hypochromasia Poikilocytosis Basophilic Stippling Anisocytosis Microcytosis Macrocytosis Spherocytes Tear Drop Cells Ovalocytes Stomatocytes [place] Bodies Leiter Cells/Echinocytes Acanthocytes (Spur) Schistocytes VBG pH VBG pCO2 VBG pO2 VBG HCO3 VBG Total CO2 VBG O2 Saturation VBG Base Excess Sodium Potassium Chloride Carbon Dioxide Anion Gap BUN Creatinine Est GFR (CKD-EPI 2020) Glucose Calcium Magnesium Total Bilirubin AST ALT Alkaline Phosphatase Troponin I Cancelled NT-Pro-B Natriuret Pep Total Protein Albumin Procalcitonin COVID-19 Source SARS-CoV-2 (PCR) Influenza Type A (PCR) Influenza Type B (PCR) RSV (PCR)
[2022-11-17 09:06] LABS: ALT 27 U/L (14-59); AST 16 U/L (15-37); Albumin 3.6 g/dL (3.4-5.0); Alkaline Phosphatase 73 U/L (46-116); BUN 7 mg/dL (7-18); Bilirubin, Total 0.4 mg/dL (0.2-1.0); CREATININE 0.8 mg/dL (0.55-1.02); Calcium 9.1 mg/dL (8.5-10.1); Chloride 105 mmol/L (98-107); Estimated GFR 100.33 (mL/min/1.73m2); Glucose 138 mg/dL (74-106); Potassium 3.7 mmol/L (3.5-5.1); Sodium 140 mmol/L (136-145)
[2022-11-17 09:10] LABS: Troponin I 91 ng/L (<or=60)
[2022-11-17 09:23] LABS: D-Dimer 1623 ng/mlFEU (<500)
[2022-11-17 09:28] LABS: COVID-19 PCR Negative (Negative); Influenza A PCR Negative (Negative); Influenza B PCR Negative (Negative); RSV PCR Negative (Negative)
--- NOTE | 2022-11-17 09:30 | DI.CT_ITS ---
Exam(s) CT CHEST PE CTA EXAM: CT CHEST PE CTA CLINICAL HISTORY: chest pain elevated ddimmer. TECHNIQUE: Imaging Protocol: CT angiography of the chest was performed using pulmonary embolus kang col. Multi planar reconstructions were performed. CONTRAST MATERIAL: Intravenous: Omnipaque 350 Contrast volume: 100 cc COMPARISON: No exams were available for comparison FINDINGS: CHEST: PULMONARY ARTERIES: Less than optimal opacification of distal pulmonary arteries. No obvious intralu emilie filling defects to suggest acute pulmonary emboli. LUNGS: There are no infiltrates nor evidence of pulmonary infarction.. There are no pleural effusions . MEDIASTINUM: There is no hilar nor mediastinal adenopathy. CARDIAC: Heart size is upper normal. There is no pericardial effusion.Caliber of the thoracic aorta is within normal limits. There is no evidence of aortic dissection. There is no significant shift of the interventricular septum. PARTIALLY VISUALIZED UPPERMOST ABDOMEN: No contrast reflux into the intrahepatic IVC. OSSEOUS: No significant osseous lesions.. IMPRESSION: 1. Less than optimal opacification of the pulmonary arteries but no obvious acute pulmonary emboli ev ident. No pulmonary infiltrates nor pulmonary infarct evident..No pleural effusions. 2. No intrathoracic adenopathy RADIATION DOSE DELIVERED: 551.02mGy.cm Total DLP DATA REPOSITORY: All CT scans at this facility are submitted to the National Radiology Data Registry (NRDR) Dose Index Registry (DIR) with the [employer] (ACR). RADIATION OPTIMIZATION: All CT scans at this facility use at least one of these dose optimization te chniques: automated exposure control; mA and/or kV adjustment per patient size (includes targeted exa ms where dose is matched to clinical indication); or iterative reconstruction.
[2022-11-17 09:44] LABS: Bilirubin Negative (Negative); Blood Trace-intact (Negative); Clarity Clear (Clear); Glucose Negative (Negative); Ketones Negative (Negative); Leukocyte Esterase Negative (Negative); Nitrite Negative (Negative); Specific Gravity 1.015 (1.005-1.025); Urobilinogen 0.2 mg/dL (Up to 0.2)
[2022-11-17 09:52] LABS: Bacteria Negative HPF (Negative); C & S Indicated? No; Casts Negative LPF (Negative); Crystals Negative HPF (Negative); Epithelial Cells Moderate HPF (Negative); Mucus Negative (Negative); RBC 0-2 HPF (0-2); WBC 0-2 HPF (0-5)
[2022-11-17 10:13] LABS: Source Nasopharynx
[2022-11-17] MEDS: Normal Saline - Diluent 50 ML VIAL IJ (10:15)
[2022-11-17] MEDS: Omnipaque 350 MG/ML 500 ML BTL-Imaging package 100 ML IJ (10:19)
[2022-11-17] MEDS: Normal Saline Flush 10 ML SYR IVP (10:22)
--- NOTE | 2022-11-17 11:04 | DI.VRAD_ITS ---
PROCEDURE INFORMATION: Exam: CTA Chest With Contrast Exam date and time: 11/17/2022 10:13 AM Age: 31 years old Clinical indication: Other: Chest pain elevated ddimmer TECHNIQUE: Imaging protocol: Computed tomographic angiography of the chest with contrast. 3D rendering (Not supervised by radiologist): MIP and/or 3D reconstructed images were created by the technologist. Contrast material: OMNIPAQUE 350; Contrast volume: 100 ml; Contrast route: INTRAVENOUS (IV); COMPARISON: No relevant prior studies available. FINDINGS: Pulmonary arteries: Negative for acute pulmonary embolism. Aorta: Unremarkable. No aortic aneurysm. No aortic dissection. Lungs: Unremarkable. No consolidation. No masses. Pleural spaces: Unremarkable. No pneumothorax. No pleural effusion. Heart: Unremarkable. No cardiomegaly. No pericardial effusion. Lymph nodes: Unremarkable. No enlarged lymph nodes. Bones/joints: Unremarkable. No acute fracture. Soft tissues: Unremarkable. IMPRESSION: Negative for acute pulmonary embolism. Dictated and Authenticated by: Dora Spears MD. Ordering:ABRAN Wood MD
--- NOTE | 2022-11-17 11:15 | RT.EKG_ITS ---
APPROVED REPORT Exam: Resting ECG Reason for Exam: Chest pain Patient Location: E HR:83 bpm ECG Measurements Heart Rate 83 AXIS TX 164 P 34 QRSd 99 QRS 38 QT 384 T 6 QTc 451 Conclusion Sinus rhythm...normal P axis, V-rate 60- 99
[2022-11-17 12:32] LABS: Troponin I 83 ng/L (<or=60)
[2022-11-17 15:14] LABS: Troponin I 114 ng/L (<or=60)
--- NOTE | 2022-11-17 16:03 | NUR.NOTE ---
report called to CURTIS Van at [facility]
[2022-11-17] MEDS: Acetaminophen 500 MG TAB (17:15)
--- NOTE | 2022-11-17 17:15 | NUR.NOTE ---
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
== END 2022-11-17 17:48 | disposition short-term general hospital (02) ==
PROVIDERS: Emergency Provider Nurse Practitioner Family; PCP Family Medicine
DX: I51.4 Myocarditis, unspecified (principal); R22.0 Localized swelling, mass and lump, head; R73.9 Hyperglycemia, unspecified; L53.9 Erythematous condition, unspecified; D72.828 Other elevated white blood cell count; Z79.84 Long term (current) use of oral hypoglycemic drugs; Z20.822 Contact with and (suspected) exposure to COVID-19
CPT/HCPCS: 36415; 71275; 80053; 81025; 82805; 84145; 87040; 87637; 93005; 96361; 96374; 99285; 81003; 81015; 83735; 83880; 84484; 85025; 85379; 93010; J1885

== ENCOUNTER 2022-12-07 16:06 | Outpatient (REF) | payer SELFPAY ==
[2022-12-07 14:56] LABS: HCT 45.8 % (36.0-46.0); HGB 14.7 g/dL (11.2-15.7); MCH 26.9 pg (27.0-33.0); MCHC 32.1 % (32.0-36.0); MCV 84 fL (80-95); MPV 9.8 fL (8.0-11.0); Platelet Count 339 10^3/uL (130-400); RBC 5.47 10^6/uL (3.93-5.22); RDW 12.7 % (11.7-14.6); RDW-SD 38.8 fL; WBC 6.98 10^3/uL (4.4-10.8)
[2022-12-07 14:58] LABS: ESR 10 mm/hr (0-20)
[2022-12-07 15:10] LABS: Anion Gap 5.9 mmol/L (3-11); BUN 17 mg/dL (7-18); C-Reactive Protein 0.23 mg/dL (0.0-0.3); CO2 29.1 mmol/L (21.0-32.0); CREATININE 0.7 mg/dL (0.55-1.02); Calcium 9.3 mg/dL (8.5-10.1); Chloride 104 mmol/L (98-107); Estimated GFR 117.77 (mL/min/1.73m2); Glucose 104 mg/dL (74-106); Potassium 4.3 mmol/L (3.5-5.1); Sodium 139 mmol/L (136-145)
== END 2022-12-07 16:07 | disposition home or self-care (01) ==
LOC: NCHCN 16:06
PROVIDERS: PCP Family Medicine; Visit Provider Registered Nurse
DX: I40.9 Acute myocarditis, unspecified (principal)
CPT/HCPCS: 80048; 85027; 85652; 86140